=== PATIENT | female | born 1990 | race Caucasian/White ===

== ENCOUNTER 2016-11-11 08:48 | Inpatient (IN) | payer MEDICAID ==
[~2016-11-11] VITALS: Ht 162.6 cm; Wt 98.9 kg
[~2016-11-11 08:48] MED LIST: ACET-2158 PO; Lanolin TOP; PRENAT PO
[2016-11-11 09:04] VITALS: Ht 162.6 cm; Wt 98.9 kg
[2016-11-11] MEDS ORDERED: FER325 PO (09:04)
[2016-11-11] MEDS ORDERED: CALC600T24 PO (09:04)
[2016-11-11 09:05] VITALS: BP 138/88; PULSE 89; RESP 18
[2016-11-11] MEDS ORDERED: OXYTOCIN 30 UNITS/LR 500 ML IV ONE ×2 (09:42→10:19)
--- NOTE | 2016-11-11 09:55 | TRIAGE ---
OB Triage Datetime Report Generated by CPN: 11/11/2016 09:55 Datetime: 11/11/2016 09:11 EGA: 36.2 Datetime: 11/11/2016 08:59 Assessment Type: Triage Maternal Assessment Level of Consciousness: Fully Conscious DTR's/Clonus: DTRs 2+; No Clonus Headache: Denies Blurred Vision: No Respiratory Effort: Unlabored; Regular Rhythm; Equal Expansion Breath Sounds, Left: Clear and Equal Breath Sounds, Right: Clear and Equal Nausea/Vomiting: Denies RUQ Epigastric Pain: Denies Lower Extremities Edema: None Degree: None Upper Extremities Edema: None Degree: None Facial Edema: None Fall Risk Assessment History of Falling: (0) No Secondary Diagnosis: (0) No Ambulatory Aid: (0) Bedrest/Nurse Assist IV Therapy: (0) No Gait: (0) Normal/Bedrest/Immobile Mental Status: (0) Oriented to Own Ability Fall Score: 0 Fall Risk Score Definition: No Risk: No action required Datetime: 11/11/2016 08:56 EGA: 37.0 Datetime: 11/11/2016 08:54 Time of Arrival: 11/11/2016 08:40 Arrived By: Ambulatory Arrived From: Home Chief Complaint: PT HERE C/O POSSIBLE SROM 0820 Movement: Present Contractions: Denies/Absent Rupture of Membranes: Unsure Vaginal Bleeding: None Vaginal Discharge: Present Recent Sexual Intercouse: Denies Abdominal Trauma: Not Applicable Patient Complaints: None Time Provider Notified: 11/11/2016 09:12 Provider Notified: DELSHAD Initial Plan: EFM,BPP,ROM PLUS, STERILE SPEC, NITRA, CBC, CMP, URIC ACID, UA Datetime: 11/11/2016 08:53 Labor Evaluation Monitor Mode: External Heart Rate Monitor Mode: External US
--- NOTE | 2016-11-11 10:14 | HP ---
Date/Time of Note Date/Time of Note DATE: 11/11/16 TIME: 10:13 OB - History Hx of Present Chief Complaint: leakage of fluid Estimated Due Date: Nov 28, 2016 : 2 Para: 1 Care: Good Care Ultrasounds: Normal mid trimester US Obstetrical Complications: None Medical Complications: None Past Family/Social History * Past Medical, Surgical, Family and Obstetric Histories reviewed from chart. GBS Status: Negative OB Admission Exam Vital Signs Vital Signs Vital Signs Date Time Temp Pulse Resp B/P Pulse Ox O2 Delivery O2 Flow Rate FiO2 11/11/16 09:05 98.9 89 18 138/88 98 Room Air Physical Exam HEENT: WNL Heart: Rhythm Normal Lungs: Clear, Equal Abdomen: WNL Extremities: Normal Reflexes: Normal Cervical Dilatation: 10cm Station: +1 Membranes: Ruptured Amniotic Fluid: Clear Heart Rate: 130's Accelerations: Accelerations Present Decelerations: No Decelerations Varibility: Moderate OB Assessment/Plan Reason for admission: active labor Plan: Expectant Management GAYE DOUGLAS MD Nov 11, 2016 10:14
[2016-11-11] MEDS: LACTATED RINGER'S 1,000 ML IV* SCH ×2 (10:16→18:16)
--- NOTE | 2016-11-11 10:16 | LDN ---
Date/Time of Note Date/Time of Note DATE: 11/11/16 TIME: 10:14 Delivery Summary Weeks of Gestation 37 weeks Placenta Delivered: Spontaneously Meconium: none Episiotomy: No Perineal laceration: 0 Anesthesia type: None Estimated blood loss: 200 Sponge & Needle done & correct: Yes All needle counts correct: Yes Any foreign bodies felt in the: No Problems: Infant Delivery Information Sex Infant Sex: female Apgars 1 Minute: 9 5 Minute: 9 Suctioning Nose & mouth suctioned at yvon: Yes Delee suction performed: No Umbilical Cord Umbilical cord with: 3 Vessels Cord presentations: no nuchal cord Cord Blood was obtained: Yes Mother & Baby Disposition Disposition Mom & Baby to Maternity; Good: Yes GAYE DOUGLAS MD Nov 11, 2016 10:16
[2016-11-11] MEDS ORDERED: HYDROCODONE/APAP (5/325) TAB PO PRN (10:30)
[2016-11-11] MEDS ORDERED: MISOPROSTOL 200 MCG TAB PR PRN (10:30)
[2016-11-11] MEDS ORDERED: CARBOPROST 250 MCG INJ IM PRN (10:30)
[2016-11-11] MEDS ORDERED: OXYTOCIN 30 UNITS/LR 500 ML IV PRN (10:30)
[2016-11-11] MEDS ORDERED: ACETAMINOPHEN 325 MG TAB PO PRN (10:30)
[2016-11-11] MEDS ORDERED: METHYLERGONOVINE 0.2 MG INJ IM PRN (10:30)
[2016-11-11] MEDS ORDERED: DIBUCAINE 1% 30 GM OINT PR PRN (10:30)
[2016-11-11] MEDS ORDERED: BENZOCAINE 20% 56 ML SPRAY TOP PRN (10:30)
[2016-11-11] MEDS ORDERED: LANOLIN 7 GM TUBE TOP PRN (10:30)
[2016-11-11] MEDS ORDERED: WITCH HAZEL/GLYCERIN PAD PR PRN (10:30)
[2016-11-11 10:32] LABS: BASOPHILS % 0.3 % (0.0-2.0); EOSINOPHILS # 0.1 10^3/ul (0.0-0.5); EOSINOPHILS % 0.9 % (0.0-7.0); HEMATOCRIT 37.2 % (37.0-47.0); HEMOGLOBIN 12.1 g/dl (12.0-16.0); LYMPHOCYTES # 1.5 10^3/ul (0.8-2.9); LYMPHOCYTES % 12.1 % (15.0-51.0); MEAN CORPUSCULAR HEMOGLOBIN 29.7 pg (29.0-33.0); MEAN CORPUSCULAR HGB CONC 32.5 g/dl (32.0-37.0); MEAN CORPUSCULAR VOLUME 91.2 fl (82.0-101.0); MEAN PLATELET VOLUME 8.4 fl (7.4-10.4); MONOCYTE # 0.6 10^3/ul (0.3-0.9); MONOCYTES % 5.1 % (0.0-11.0); NEUTROPHIL # 9.6 10^3/ul (1.6-7.5); NEUTROPHILS % 79.4 % (39.0-77.0); PLATELET COUNT 311 10^3/UL (140-415); RED BLOOD COUNT 4.08 10^6/ul (4.20-5.40); WHITE BLOOD COUNT 12.1 10^3/ul (4.8-10.8)
[2016-11-11 10:52] LABS: ALBUMIN 3.5 g/dl (3.3-4.9); ALBUMIN/GLOBULIN RATIO 1.09; BILIRUBIN,INDIRECT 0.1 mg/dl (0-1.1); BILIRUBIN,TOTAL 0.1 mg/dl (0.2-1.3); CALCIUM 9.2 mg/dl (8.4-10.2); CREATININE 0.5 mg/dl (0.44-1.00); POTASSIUM 4.6 mmol/L (3.5-5.1); TOTAL PROTEIN 6.7 g/dl (6.1-8.1)
[2016-11-11 12:43] LABS: ADD UMIC YES; UR ASCORBIC ACID NEGATIVE (NEGATIVE); UR BACTERIA FEW /HPF (NONE SEEN); UR BILIRUBIN (Dip) NEGATIVE (NEGATIVE); UR BLOOD (Dip) 1+ mg/dL (NEGATIVE); UR CLARITY CLEAR (CLEAR); UR COLOR STRAW (YELLOW); UR GLUCOSE (Dip) NEGATIVE (NEGATIVE); UR KETONES (Dip) NEGATIVE (NEGATIVE); UR LEUKOCYTE ESTERASE (Dip) NEGATIVE Leu/ul (NEGATIVE); UR NITRITE (Dip) NEGATIVE (NEGATIVE); UR RBC 0 /HPF (0-5); UR SPECIFIC GRAVITY (Dip) 1.002 (1.003-1.030); UR TOTAL PROTEIN (Dip) NEGATIVE (NEGATIVE); UR UROBILINOGEN (Dip) NEGATIVE (NEGATIVE)
[2016-11-11 17:30] VITALS: BP 129/80; PULSE 86; RESP 17
[2016-11-11] MEDS: IBUPROFEN 600 MG TAB PO SCH ×3 (18:00→23:29)
[2016-11-11 19:30] VITALS: BP 117/75; PULSE 100; RESP 20
[2016-11-11] MEDS: SENNA/DOCUSATE NA (8.6MG/50MG) TAB PO SCH (21:27)
[2016-11-11 23:29] VITALS: BP 130/77; PULSE 99; RESP 17
[2016-11-12 04:00] VITALS: BP 117/67; PULSE 95; RESP 17
[2016-11-12] MEDS: IBUPROFEN 600 MG TAB PO SCH ×3 (05:51→17:50)
[2016-11-12 08:30] VITALS: BP 114/65; PULSE 88; RESP 17
[2016-11-12] MEDS: SENNA/DOCUSATE NA (8.6MG/50MG) TAB PO SCH ×2 (09:00→21:35)
[2016-11-12 11:28] LABS: BASOPHIL # 0.1 10^3/ul (0.0-0.1); BASOPHILS % 0.5 % (0.0-2.0); EOSINOPHILS # 0.2 10^3/ul (0.0-0.5); EOSINOPHILS % 1.5 % (0.0-7.0); HEMOGLOBIN 11.2 g/dl (12.0-16.0); LYMPHOCYTES # 1.9 10^3/ul (0.8-2.9); LYMPHOCYTES % 15.8 % (15.0-51.0); MEAN CORPUSCULAR HEMOGLOBIN 30.1 pg (29.0-33.0); MEAN CORPUSCULAR HGB CONC 32.9 g/dl (32.0-37.0); MEAN CORPUSCULAR VOLUME 91.4 fl (82.0-101.0); MEAN PLATELET VOLUME 8.7 fl (7.4-10.4); MONOCYTE # 0.7 10^3/ul (0.3-0.9); MONOCYTES % 5.6 % (0.0-11.0); NEUTROPHIL # 9.3 10^3/ul (1.6-7.5); NEUTROPHILS % 75.4 % (39.0-77.0); PLATELET COUNT 291 10^3/UL (140-415); RED BLOOD COUNT 3.72 10^6/ul (4.20-5.40); RED CELL DISTRIBUTION WIDTH 14.5 % (11.5-14.5); WHITE BLOOD COUNT 12.3 10^3/ul (4.8-10.8)
[2016-11-12 16:00] VITALS: BP 116/72; PULSE 104; RESP 17
--- NOTE | 2016-11-12 16:33 | DS ---
Date/Time of Note Date/Time of Note DATE: 11/12/16 TIME: 16:33 Obstetrical Discharge Record Final Diagnosis Final Diagnosis: Term delivered Vaginal Delivery Obstetrical Delivery: Spontaneous Condition on Discharge Physical Assessment Voiding: Yes Bowel Movement: Yes Breast: Soft, non-tender, Filling Fundus: Firm Calf Tenderness: No Patient Condition: Stable GAYE DOUGLAS MD Nov 12, 2016 16:33
[2016-11-12 20:00] VITALS: BP 120/76; PULSE 106; RESP 18
[2016-11-13] MEDS: IBUPROFEN 600 MG TAB PO SCH ×3 (00:17→12:21)
[2016-11-13 04:00] VITALS: BP 117/63; PULSE 91; RESP 18
[2016-11-13 08:50] VITALS: BP 110/65; PULSE 80; RESP 18
[2016-11-13] MEDS ORDERED: DIPHTH/TET/ACEL PERTUSS (ADULT) 0.5 ML VIAL IM* ONE (09:00)
[2016-11-13] MEDS: SENNA/DOCUSATE NA (8.6MG/50MG) TAB PO SCH (10:02)
== END 2016-11-13 14:10 | disposition home or self-care (01) | DRG 775 ==
LOC: OBT 08:48 → L-D 08:48 → OBT 09:39 → L-D 09:39 → PP1 17:23
PROVIDERS: ADMIT Obstetrics & Gynecology; ATTEND Obstetrics & Gynecology
PROC: 10E0XZZ Delivery of Products of Conception, External Approach (ICD-10-PCS; principal; 2016-11-11)
PROC: 3E033VJ Introduction of Other Hormone into Peripheral Vein, Percutaneous Approach (ICD-10-PCS; 2016-11-11)
DX: O80 Encounter for full-term uncomplicated delivery (principal); Z37.0 Single live birth; Z3A.37 37 weeks gestation of pregnancy
CPT/HCPCS: 80053; 81001; 84560; 85025; 86592; 86900; 86901; 90715; G0463; J2590; J7120